=== PATIENT | female | born 1950 | race Caucasian/White ===

== ENCOUNTER → 2017-07-25 | Outpatient (CLI) | payer OTHER | END | disposition home or self-care (01) | LOC: CDC 10:51 | DX: Z01.810 Encounter for preprocedural cardiovascular examination (principal); H25.12 Age-related nuclear cataract, left eye; R94.31 Abnormal electrocardiogram [ECG] [EKG] | CPT/HCPCS: 93000 ==

== ENCOUNTER 2017-09-24 05:20 | Day surgery (SDC) | payer OTHER ==
[~2017-09-24] VITALS: Ht 175.3 cm; Wt 100.7 kg
[~2017-09-24 05:20] MED LIST: ALTACE10 MG PO; AVELOX400 MG PO; FISH OIL 1,2001 EAC4 PO; NIACOR500 MG PO; ZANTAC300 MG PO
[2017-09-24 06:07] VITALS: BP 136/74
[2017-09-24] MEDS ORDERED: LORTAB 5-325 M1 EACH PO (11:31)
[2017-09-24 13:15] VITALS: BP 138/91
[2017-09-24 14:14] VITALS: BP 142/72
[2017-09-24 15:38] VITALS: BP 132/76
== END 2017-09-24 15:54 | disposition home or self-care (01) ==
LOC: NUC 05:20 → SDC 05:20 → NUC 07:00 → SDC 15:54
DX: C50.511 Malignant neoplasm of lower-outer quadrant of right female breast (principal); I10 Essential (primary) hypertension; K21.9 Gastro-esophageal reflux disease without esophagitis; Z88.0 Allergy status to penicillin; Z17.0 Estrogen receptor positive status [ER+]; Z80.3 Family history of malignant neoplasm of breast; Z80.49 Family history of malignant neoplasm of other genital organs; Z80.41 Family history of malignant neoplasm of ovary; Z80.8 Family history of malignant neoplasm of other organs or systems
CPT/HCPCS: 78195; 78999; 88305; 88307; A9541; J0330; J1100; J1170; J2250; J2405; J2765; J3010; S0020